=== PATIENT | female | born 1975 | race Caucasian/White ===

== ENCOUNTER → 2022-04-19 | Outpatient (POV) | payer OTHER ==
[~2022-04-19] VITALS: Ht 180.3 cm; Wt 102.2 kg
[2022-04-19 08:55] VITALS: BP 131/73
== END ==
LOC: M IRPOV 08:46
PROVIDERS: ATTEND Radiology Diagnostic Radiology
DX: I86.3 Vulval varices (principal); Z90.710 Acquired absence of both cervix and uterus; Z98.84 Bariatric surgery status; Z90.49 Acquired absence of other specified parts of digestive tract; Z87.442 Personal history of urinary calculi

== ENCOUNTER → 2022-05-16 | Outpatient (CLI) | payer OTHER ==
[~2022-05-16] MED LIST: CETI10CA2 PO; CYMB60CA4 PO; HYDR50TA70 PO; ISOVUE-300 61% 50ML VIAL As Ordered ONE; LIDOCAINE 1% MDV 20ML VIAL As Ordered ONE; MIDAZOLAM INJ 2MG/2ML VIAL (J2250 PER 1MG) As Ordered ONE; NS 1,000 ML IV SCH; PERCOCET PO; PHEN-239 PO; SPIR100T3 PO; diphenhydrAMINE 50MG/ML VIAL As Ordered ONE; fentaNYL 100 MCG/2 ML INJECTION As Ordered ONE
[2022-05-16 16:45] VITALS: BP 120/77
== END ==
LOC: M IRPRO 08:29
PROVIDERS: ATTEND Radiology Diagnostic Radiology
DX: I86.3 Vulval varices (principal); N94.89 Other specified conditions associated with female genital organs and menstrual cycle; Z79.899 Other long term (current) drug therapy; Z88.0 Allergy status to penicillin; Z88.5 Allergy status to narcotic agent; Z88.6 Allergy status to analgesic agent; Z88.8 Allergy status to other drugs, medicaments and biological substances
CPT/HCPCS: 36010; 36011; 75822; 75831; 99152; 99153; C1769; C1887; C1894; J1200; J1644; J2250; J3010